=== PATIENT | female | born 1965 | race Caucasian/White ===

== ENCOUNTER 2019-02-25 16:31 | Emergency (ER) | payer SELFPAY ==
[2019-02-25] MEDS ORDERED: DIAZEPAM 5 MG TABLET ONE (17:03)
[2019-02-25] MEDS ORDERED: FENTANYL CITR 100 MCG/2 ML ONE (17:04)
[2019-02-25] MEDS ORDERED: IBUPROFEN 400 MG TAB ONE (17:04)
[2019-02-25 17:18] LABS: Urine Bacteria >50 /HPF (<20); Urine Culture Reflex Order NOT NEEDED; Urine RBC <5 /HPF (NONE SEEN)
[2019-02-25 17:22] LABS: Urine Blood TRACE (NEG); Urine Glucose NEGATIVE (NEG); Urine Protein TRACE (NEG); Urine Specific Gravity 1.025 (1.005-1.030); Urine pH 5.5 (5.0-7.0)
--- NOTE | 2019-02-25 17:34 | EDPHYS ---
Physician Documentation [facility] Name: Suzan Scott Age: 53 yrs Sex: Female : 1965 Arrival Date: 02/25/2019 Time: 16:34 Bed 13 Private MD: None, None ED Physician Jerad Quinonez HPI: 02/25 16:48 This 53 yrs old Female presents to ER via Ambulatory with complaints of Back snw Pain. 16:48 The patient presents with pain that is acute, with no known mechanism of injury. The snw symptoms are located in the low back. Onset: The symptoms/episode began/occurred gradually, 2 week(s) ago, and became worse this morning. The pain does not radiate. Associated signs and symptoms: The patient has no apparent associated signs or symptoms. The problem was sustained from unknown cause. Modifying factors: The patient symptoms are alleviated by nothing, the patient symptoms are aggravated by bending. Severity of symptoms: At their worst the symptoms were moderate. It is unknown whether or not the patient has had similar symptoms in the past. The patient has not recently seen a physician. no difficulty with urination, daily bm, no numbness. 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 - Social history:: Smoking status: Patient uses tobacco products, smokes one-half pack cigarettes per day. - Ebola Screening: : Patient negative for fever greater than or equal to 101.5 degrees Fahrenheit, and additional compatible Ebola Virus Disease symptoms Patient denies exposure to infectious person Patient denies travel to an Ebola-affected area in the 21 days before illness onset No symptoms or risks identified at this time. ROS: 16:48 Constitutional: Negative for fever, chills, and weight loss, Eyes: Negative for injury, snw pain, redness, and discharge, ENT: Negative for injury, pain, and discharge, Neck: Negative for injury, pain, and swelling, Cardiovascular: Negative for chest pain, palpitations, and edema, Respiratory: Negative for shortness of breath, cough, wheezing, and pleuritic chest pain, Abdomen/GI: Negative for abdominal pain, nausea, vomiting, diarrhea, and constipation, : Negative for injury, bleeding, discharge, and swelling, MS/Extremity: Negative for injury and deformity, Skin: Negative for injury, rash, and discoloration, Neuro: Negative for headache, weakness, numbness, tingling, and seizure. 16:48 Back: Positive for decreased range of motion, pain at rest, pain with movement, of the low back area, Negative for radiated pain. Exam: 16:47 Constitutional: This is a well developed, well nourished patient who is awake, alert, snw and in no acute distress. Head/Face: Normocephalic, atraumatic. Eyes: Pupils equal round and reactive to light, extra-ocular motions intact. Lids and lashes normal. Conjunctiva and sclera are non-icteric and not injected. Cornea within normal limits. Periorbital areas with no swelling, redness, or edema. ENT: Nares patent. No nasal discharge, no septal abnormalities noted. Tympanic membranes are normal and external auditory canals are clear. Oropharynx with no redness, swelling, or masses, exudates, or evidence of obstruction, uvula midline. Mucous membranes moist. Neck: Trachea midline, no thyromegaly or masses palpated, and no cervical lymphadenopathy. Supple, full range of motion without nuchal rigidity, or vertebral point tenderness. No Meningismus. Chest/axilla: Normal chest wall appearance and motion. Nontender with no deformity. No lesions are appreciated. Cardiovascular: Regular rate and rhythm with a normal S1 and S2. No gallops, murmurs, or rubs. Normal PMI, no JVD. No pulse deficits. Respiratory: Lungs have equal breath sounds bilaterally, clear to auscultation and percussion. No rales, rhonchi or wheezes noted. No increased work of breathing, no retractions or nasal flaring. Abdomen/GI: Soft, non-tender, with normal bowel sounds. No distension or tympany. No guarding or rebound. No evidence of tenderness throughout. Back: No spinal tenderness. No costovertebral tenderness. limited range of motion (flexion) Skin: Warm, dry with normal turgor. Normal color with no rashes, no lesions, and no evidence of cellulitis. MS/ Extremity: Pulses equal, no cyanosis. Neurovascular intact. Full, normal range of motion. Neuro: Awake and alert, GCS 15, oriented to person, place, time, and situation. Cranial nerves II-XII grossly intact. Motor strength 5/5 in all extremities. Sensory grossly intact. Cerebellar exam normal. Normal gait. Psych: Awake, alert, with orientation to person, place and time. Behavior, mood, and affect are within normal limits. Vital Signs: 16:44 BP 143 / 95; Pulse 89; Resp 16; Temp 97.3; Pulse Ox 98% on R/A; Pain 6/10; iw 17:53 BP 129 / 93; Pulse 63; Resp 17; Pulse Ox 95% on R/A; tw2 MDM: 16:42 Patient medically screened. snw 17:35 Data reviewed: vital signs, nurses notes. Data interpreted: Pulse oximetry: on room air snw is 98 %. Interpretation: normal. Counseling: I had a detailed discussion with the patient and/or guardian regarding: the historical points, exam findings, and any diagnostic results supporting the discharge/admit diagnosis, lab results, the need for outpatient follow up, to return to the emergency department if symptoms worsen or persist or if there are any questions or concerns that arise at home. Special discussion: Based on the history and exam findings, there is no indication for further emergent testing or inpatient evaluation. I discussed with the patient/guardian the need to see the primary care provider for further evaluation of the symptoms. 02/25 16:47 Order name: Urine Culture snw 02/25 16:47 Order name: Urine Microscopic Only; Complete Time: 17:33 snw 02/25 17:12 Order name: Urine Dipstick--Ancillary (enter results); Complete Time: 17:33 eb 02/25 17:12 Order name: Urine --Ancillary (enter results); Complete Time: 17:33 eb 02/25 16:47 Order name: Urine Dipstick-Ancillary (obtain specimen); Complete Time: 17:03 snw Administered Medications: 16:57 Drug: Valium 5 mg Route: PO; tw2 17:44 Follow up: Response: No adverse reaction tw2 16:57 Drug: fentaNYL (PF) 25 mcg Route: IM; Site: right deltoid; tw2 17:44 Follow up: Response: No adverse reaction; Pain is decreased tw2 16:57 Drug: Motrin 400 mg Route: PO; tw2 17:44 Follow up: Response: No adverse reaction tw2 17:50 Drug: Rocephin (cefTRIAXone) 1 grams Route: IM; Site: right gluteus; tw2 18:05 Follow up: Response: No adverse reaction tw2 Disposition: 18:37 Co-signature as Attending Physician, Jerad Quinonez MD. rn Disposition: 02/25/19 17:34 Discharged to Home. Impression: Urinary tract infection, site not specified, Low back pain. - Condition is Stable. - Discharge Instructions: Back Pain, Adult, Hypertension, Urinary Tract Infection, Adult, Cryotherapy, Rehydration, Adult, Heat Therapy. - Prescriptions for Augmentin 875- 125 mg Oral Tablet - take 1 tablet by ORAL route every 12 hours for 10 days; 20 tablet. Diclofenac Sodium 75 mg Oral Tablet Sustained Release - take 1 tablet by ORAL route 2 times per day; 30 tablet. orphenadrine citrate 100 mg Oral Tablet Sustained Release - take 1 tablet by ORAL route 2 times per day As needed; 20 tablet. - Work release form, Medication Reconciliation Form, Thank You Letter, Antibiotic Education, Prescription Opioid Use form. - Follow up: Private Physician; When: 2 - 3 days; Reason: Recheck today's complaints, Continuance of care, Re-evaluation by your physician. Follow up: Emergency Department; When: As needed; Reason: Worsening of condition. Signatures: Dispatcher [employer] EDMS Maryana Camilo, ARIEL-C HYDRO GENERATION SUPERVISOR-Csnw Raeann Woods RN RN iw Nieto, Roman, MD MD rn Wise, Tara, RN RN tw2 Corrections: (The following items were deleted from the chart) 18:05 17:34 02/25/2019 17:34 Discharged to Home. Impression: Urinary tract infection, site tw2 not specified; Low back pain. Condition is Stable. Forms are Medication Reconciliation Form, Thank You Letter, Antibiotic Education, Prescription Opioid Use. Follow up: Private Physician; When: 2 - 3 days; Reason: Recheck today's complaints, Continuance of care, Re-evaluation by your physician. Follow up: Emergency Department; When: As needed; Reason: Worsening of condition. snw
--- NOTE | 2019-02-25 17:34 | ER ---
Nurse's Notes [facility] Name: Suzan Scott Age: 53 yrs Sex: Female : 1965 Arrival Date: 02/25/2019 Time: 16:34 Bed 13 Private MD: None, None Diagnosis: Urinary tract infection, site not specified;Low back pain Presentation: 02/25 16:42 Presenting complaint: Patient states: jose alfredo low back pain X 2 weeks, worse this morning iw when she woke up, could hardly get herself out of bed, denies injury, denies urinary symptoms, pt states pain radiates to groin area. Transition of care: patient was not received from another setting of care. Onset of symptoms was February 10, 2019. Risk Assessment: Do you want to hurt yourself or someone else? Patient reports no desire to harm self or others. Initial Sepsis Screen: Does the patient meet any 2 criteria? No. Patient's initial sepsis screen is negative. Does the patient have a suspected source of infection? No. Patient's initial sepsis screen is negative. Care prior to arrival: None. 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 - Social history:: Smoking status: Patient uses tobacco products, smokes one-half pack cigarettes per day. - Ebola Screening: : Patient negative for fever greater than or equal to 101.5 degrees Fahrenheit, and additional compatible Ebola Virus Disease symptoms Patient denies exposure to infectious person Patient denies travel to an Ebola-affected area in the 21 days before illness onset No symptoms or risks identified at this time. Screenin:40 Abuse screen: Denies threats or abuse. Nutritional screening: No deficits noted. tw2 Tuberculosis screening: No symptoms or risk factors identified. Fall Risk None identified. Assessment: 16:40 General: Appears uncomfortable, Behavior is calm, cooperative, appropriate for age. tw2 Pain: Complains of pain in low back area. Neuro: Level of Consciousness is awake, alert, obeys commands, Oriented to person, place, time, situation. Cardiovascular: Capillary refill < 3 seconds Patient's skin is warm and dry. Respiratory: Airway is patent Respiratory effort is even, unlabored, Respiratory pattern is regular, symmetrical, Breath sounds are clear bilaterally. GI: No signs and/or symptoms were reported involving the gastrointestinal system. : No signs and/or symptoms were reported regarding the genitourinary system. EENT: No signs and/or symptoms were reported regarding the EENT system. Derm: No signs and/or symptoms reported regarding the dermatologic system. Musculoskeletal: Range of motion: intact in all extremities. 17:30 Reassessment: Patient appears in no apparent distress at this time. Patient and/or tw2 family updated on plan of care and expected duration. Pain level reassessed. Patient is alert, oriented x 3, equal unlabored respirations, skin warm/dry/pink. Patient states feeling better. Vital Signs: 16:44 BP 143 / 95; Pulse 89; Resp 16; Temp 97.3; Pulse Ox 98% on R/A; Pain 6/10; iw 17:53 BP 129 / 93; Pulse 63; Resp 17; Pulse Ox 95% on R/A; tw2 ED Course: 16:34 Patient arrived in ED. mr 16:35 None, None is Private Physician. mr 16:40 Corine Betts, RN is Primary Nurse. tw2 16:40 Bed in low position. Call light in reach. Adult w/ patient. Pulse ox on. NIBP on. tw2 16:42 Maryana Camilo [facility]NP-C [facility]. snw 16:42 Jerad Quinonez MD is Attending Physician. snw 16:43 Triage completed. iw 16:44 Arm band placed on. iw 17:03 Urine Microscopic Only Sent. tw2 17:03 Urine Culture Sent. tw2 17:56 No provider procedures requiring assistance completed. Patient did not have IV access tw2 during this emergency room visit. Administered Medications: 16:57 Drug: Valium 5 mg Route: PO; tw2 17:44 Follow up: Response: No adverse reaction tw2 16:57 Drug: fentaNYL (PF) 25 mcg Route: IM; Site: right deltoid; tw2 17:44 Follow up: Response: No adverse reaction; Pain is decreased tw2 16:57 Drug: Motrin 400 mg Route: PO; tw2 17:44 Follow up: Response: No adverse reaction tw2 17:50 Drug: Rocephin (cefTRIAXone) 1 grams Route: IM; Site: right gluteus; tw2 18:05 Follow up: Response: No adverse reaction tw2 Outcome: 17:34 Discharge ordered by . tamika 18:04 Discharged to home ambulatory, with family. tw2 18:04 Condition: stable 18:04 Discharge instructions given to patient, family, Instructed on discharge instructions, follow up and referral plans. no drinking with medication, no driving heavy equipment, medication usage, Demonstrated understanding of instructions, follow-up care, medications, Prescriptions given X 3. 18:05 Patient left the ED. tw2 Signatures: Maryana Camilo, FARM TRACTOR MECHANIC-C FARM TRACTOR MECHANIC-Wallacew Naima Clarke Irene, RN THOM iw Corine Betts RN RN tw2
[2019-02-25] MEDS ORDERED: WATER FOR INJ,STERILE 10 ML ONE (17:58)
[2019-02-25] MEDS ORDERED: CEFTRIAXONE 1000 MG/VIAL ONE (17:58)
== END 2019-02-25 18:05 | disposition home or self-care (01) ==
LOC: ER 16:31
DX: N39.0 Urinary tract infection, site not specified (principal); F17.210 Nicotine dependence, cigarettes, uncomplicated; Z88.1 Allergy status to other antibiotic agents; Z88.8 Allergy status to other drugs, medicaments and biological substances
CPT/HCPCS: 81003; 81015; 81025; 87086; 87088; 96372; 99284; J3010